=== PATIENT | female | born 1990 | race Two or more races ===

== ENCOUNTER 2025-06-01 16:13 | Inpatient (IN) | payer MEDICAID, OTHER, SELFPAY ==
--- OUTSIDE RECORDS SUMMARY | 2025-05-10 10:20 | XMS_ITS | Continuity of Care Document ---
Author Organization [facility] Address [address] [place] [address] Phone Care Team Providers Care Day Care Teacher Name Role Phone Nelson Trent Unavailable Unavailable Medications Medication Instructions Dosage Effective Dates (start - stop) Status Comments escitalopram 10 mg tablet take 1 and a half tablets by oral route - Active Vitamin D2 1,250 mcg (50,000 unit) capsule take 1 capsule by oral route every week for 3 months and then take 1 capsule every month - Active escitalopram 10 mg tablet take 1 tablet by oral route every day 10 MG - No Longer Active Procedures Procedure Date OFFICE/OUTPATIENT VISIT, EST OFFICE/OUTPATIENT VISIT, NEW Results Test Name Date and Time Measure Units Reference Range Abnormal Flag Status Comments Panel Description: CBC w/o Diff Final White Blood Cells 15:22:00 3.9 10*3/uL 4.0-11.0 L Final Performed by:[facility] ([id number])[address] [place] [address] Red Blood Cells 15:22:00 4.11 10*6/uL 4.0-5.4 N Final Performed by:[facility] ([id number])14 [place] [address] Hemoglobin 15:22:00 11.8 g/dL 12.0-16.0 L Final Performed by:[facility] ([id number])[address] [place] [address] Hematocrit 15:22:00 35.4 % 36.0-48.0 L Final Performed by:[facility] ([id number])[address] [place] [address] Mean Cell Volume 15:22:00 86.1 fL 80.0-96.0 N Final Performed by:[facility] ([id number])[address] [place] [address] Mean Cell HGB 15:22:00 28.7 pg 27.0-31.0 N Final Performed by:[facility] ([id number])[address] [place] [address]956 Mean Cell HGB Conc 15:22:00 33.3 g/dL 32.0-36.0 N Final Performed by:[facility] ([id number])[address] [place] [address] RDW-CV 15:22:00 13.1 % 12.8-18.4 N Final Performed by:[facility] ([id number])[address] [place] [address] PLT Count 15:22:00 209 10*3/uL 140-400 N Final Performed by:[facility] ([id number])[address] [place] [address] 64605 MPV 15:22:00 11.5 fL 8.0-12.0 N Final Performed by:[facility] ([id number])[address] [place] [address] 10711 NRBC Pct Auto 15:22:00 0.0 % 0.0-0.2 N Final Performed by:[facility] ([id number])[address] [place] [address] NRBC Abs Auto 15:22:00 0.00 10*3/uL 0.000-0.012 N Final Performed by: [facility] ([id number])[address] [place] [address] Panel Description: Basic Metabolic Panel Final Sodium 15:22:00 140 mmol/L 136-145 N Final Performed by:[facility] ([id number])[address] [place] [address] Potassium 15:22:00 4.2 mmol/L 3.5-5.1 N Final Performed by:[facility] ([id number])[address] [place] [address] Chloride 15:22:00 104 mmol/L 98-107 N Final Performed by:[facility] ([id number])[address] [place] [address] Carbon Dioxide 15:22:00 28 mmol/L 20-31 N Final Performed by:[facility] ([id number])[address] [place] [address] 75369 Anion Gap 15:22:00 8 mmol/L 5-15 N Final Performed by:[facility] ([id number])[address] [place] [address] Glucose 15:22:00 92 mg/dL 74-106 N Final Performed by:[facility] ([id number])[address] [place] [address] 33299 Blood Urea Nitrogen 15:22:00 12 mg/dL 9-23 N Final Performed by:[facility] ([id number])[address] [place] [address] Serum Creatinine 15:22:00 0.82 mg/dL 0.55-1.02 N Final Performed by:[facility] ([id number])[address] [place] [address] Estimated GFR 15:22:00 97 > 60 Final Units - mL/min/1.73 msqCKD-EPI Creatinine Equation (2020) used as recommended byThe National Kidney Foundation. Start date (11/12/22).Perfor med by:[facility] ([id number])[address] [place] [address] Calcium 15:22:00 9.5 mg/dL 8.3-10.6 N Final Please Note: N ew method for Calcium testing live 08/16/2024. New reference range live 08/16/2024.Perfor med by:[facility] ([id number])14 [place] [address] Panel Description: TSH [place] Final TSH [place] 025 15:22:00 2.488 uIU/mL 0.358-3.740 N Final Performed by: [facility] ([id number])14 [place] [address] Panel Description: Vitamin D 25 Hydroxy Final Vitamin D 25 Hydroxy 025 15:22:00 19.0 ng/mL 30-100 L Final Interpretation of Vitamin D total:<20 ng/mL Zubcaddvf52-28 ng/mL Insufficient>30 ng/mL Sufficient>100 ng/mL ToxicPerformed by:[facility] ([id number])14 [place] [address] Advance Directives Directive Yes / No Effective Date File Name No Information Encounters Encounter Description Practice Location Reason(s) For Visit Diagnoses Date Provider Providers Copied on Encounter OFFICE/OUTPA TIENT VISIT, [facility], [address], [place], [place], [id number], tel:[phone] anxiety (chief complaint) AnxietyOverweig ht (E66.3)Body mass index (BMI) 26.0-26.9, adultPostural dizziness 5 Maria De Jesus Damon. [address] [facility], [place], [address], [place]. tel:[phone] OFFICE/OUTPA TIENT VISIT, [facility], [address], [place], [place], [id number], tel:[phone] [facility] ER f/u (chief complaint) Other chest painAnxiety 5 Maria De Jesus Damon. [address] [place], [address], [place]. tel:[phone] Family History Family Member Type Diagnosis Age At Onset No Information Payers Payer name Insurance type Covered green party ID Authorlynna tikrystal(s) Mesh [place] [facility] [id number] [employer] [facility] [id number] Social History Type Description Quantity Date Captured Comments Alcohol Use Details Unknown Caffeine Use Details Unknown Tobacco Use Status No Information Smoking Status No Information Sex Female Sexual Orientation Straight or heterosexual Vital Signs Date / Time: Height Weight BMI Pulse Rate Blood Pressure Temperature Respiratory Rate Body Surface Area Head Circumference Head Circ. Percentile Wt./Lonny. Percentile BMI percentile Pulse Ox Inhaled Ox 2:23 PM 58.31 in 58.423 kg (128.80 lbs) 26.6 3 kg/m eter (2) 61 /min 88/58 mm[Hg] 97.90 F 1.55 meter(2) Chief Complaint And Reason For Visit From encounter dated '05/10/2025 14:20'. anxiety (chief complaint). Description: The patient presents with anxious/fearful thoughts and difficulty concentrating but denies compulsive thoughts, decreased need for sleep, depressed mood, difficulty falling asleep, difficulty staying asleep or thoughts of or suicide. The patient's risk factors include financial worries. Additional information: has had some good improvement with escitalopram and would like to continue. Has 2 daughters and 1 son. Has stress with fiances, pt works in house cleaning. Reason For Referral Reason For Referral No Information Plan Of Treatment Date Type Action Status Goal BPRS. Due on due Goal DAST. Due on due Goal PHQ-9. Due on du e Goal IAP. Due on due Goal Td vaccine. Due on due Goal Document SOGI Information. D ue on due Goal Unhealthy drug use screening . Due on due Goal Tdap. Due on due Goal HPV. Due on due Goal Influenza vaccine. Due on due Goal APE. Due on due Goal Pap/HPV testing. Due on due Goal Diabetes Screening. Due on A due Goal APE. Due on due Goal HPV. Due on due Goal Td vaccine. Due on due Goal Diabetes Screening. Due on J due Goal Document SOGI Information. D ue on due Goal Unhealthy drug use screening . Due on due Goal Pap/HPV testing. Due on due Goal Tdap. Due on due Goal Influenza vaccine. Due on due Referral Ordered: Referrals: [facility]. Evaluate and treat Appointment date/timeframe: Urgent ordered Appointment Kasey Frederick History Of Present Illness Encounter Date Complaint History Of Prese nt Illness anxiety The patient pres ents with anxious/fearful thoughts and difficulty concentrating but denies compulsive thoughts, decreased need for sleep, depressed mood, difficulty falling asleep, difficulty staying asleep or thoughts of or suicide. The patient's risk factors include financial worries. Additional information: has had some good improvement with escitalopram and would like to continue. Has 2 daughters and 1 son. Has stress with fiances, pt works in house cleaning. ER f/u - Went to [facility] n 03/12/25 for chest pain and SOB for past 1 week that come and go. Reported to ED due to worsening CP with tingling in both arms. - Labs: no leukocytosis H&H stable, D-Dimer 350, creatinine 0.72, troponin neg x2, hcg neg- CXR no acute process- EKG showing NSR 84 bpm. - Pt was given Toradol and AtivanPMH: noneMeds: noneallergy: noneSurgery : appendectomy (2023) and tubal ligation in 2019Fhx: denies any cancer, heart disease, HTN, DM. Denies any fhx of BH issues. smoking, drinking, drug use: none. Today: doing well, having increased anxiety and stressors at home due to stress with due to not working at this time. Has been in [place] ~3-4 months has been in [facility] for over a year. Having a lot of stress due to finances and getting upset during exam. Used to work in [employer]. Immigrated from [facility]. Lives with 3 sons at home in house that they rent a room. Still gets intermittent chest pain that comes and goes on its own. Functional Status Date Functional Assessmen t No Information Instructions Date Instruction Additional Infor dionne Dietary and exercise management, guidance, and counseling Related to Overweight (E66.3) Dietary and exercise management, guidance, and counseling Related to Body mass index (BMI) 26.0-26.9, adult Assessments Type Assessment Date assessment Anxiety assessment Overweight (E66.3) assessment Body mass index (BMI) 26.0-26.9, adult assessment Postural dizziness Patient Care Teams Name Effective Dates (start - stop) Status Members No Information
[2025-06-01 18:24] VITALS: BP 106/65; PULSE 66; RESP 14; TEMP 37.1; O2SAT 96
--- NOTE | 2025-06-01 18:49 | PC.ADMIT ---
Kasey is a 34 y/o female that was admitted to [facility] at time from [facility] in [place] on a CV for treatment of diagnosis. Pt is [place], from [place]. Pt lives at home with her family. ? Unspecified anxiety d/o. Per crisis evaluation pt presented to the ED after she took about 20 tabs of 10 mg Lexapro.? Pt called her brother in law after she began to vomit, H/A and abdominal pain. Pt is unsure if it was a suicide attempt. She stated ?i was just trying to relax, I wanted to sleep. I don?t know why I took that many pills. I have no stress, no issues at home. I was doing my normal routine of going to work and coming home nothing happened?.? Pt had limited insight into the severity of the situation leading up to her admission.? Pt denied SI or HI at this time. Pt denied AVH.? Precipitant of admission include Behavior/ Issue leading up to ED. A&O x4. Pt was cooperative with the admission process. Skin check unremarkable.? Mood is relaxed, affect is congruent. Full range in affect.? Thought Process linear and organized.? Pt had good focus, reported no disturbances with sleep or appetite.? Tox Screen? was negative. denied tobacco, substance or etoh use.? Medical Issues hx of appendectomy.? 1st IPLOC.? Pt has 3 children, a 51A was filed.? Pt was placed on 15 min checks for safety.
[2025-06-01 18:54] VITALS: BMI 27.6
[2025-06-01 19:36] VITALS: BP 118/74
[2025-06-01 20:00] VITALS: BP 115/70; PULSE 65; RESP 15; TEMP 36.9; O2SAT 100
[2025-06-02 07:00] VITALS: BMI 27.7
[2025-06-02 07:37] VITALS: BP 104/61; PULSE 66; RESP 18; TEMP 36.8; O2SAT 99
[2025-06-02 08:05] LABS: Hemoglobin A1C 95.9496 umol/L; Total Hemoglobin (HGBA1C) 3097.8673 umol/L
--- NOTE | 2025-06-02 08:11 | HO.PM.IMCN ---
History of Present Illness Data of Consult Service Date: 06/02/25 Requesting physician: Radha Tena Primary Care Provider: Nelson BRANDT Reason for consult: Admission H&P This is a 34-year-old French-speaking female who was admitted from [place] due to overdose with Lexapro. The hospitalist service was asked to see her in consultation for routine medical consult. History was obtained with the assistance of a cabin cleaning supervisor. Patient denies the history of any chronic medical conditions, she denies taking any medications on daily basis with the exception of her Lexapro for depression. She does report a remote history of what she calls thrombosis back in [facility] but she has never been on anticoagulation. She denies any specific medical complaints at this time PMFSH Social History Household Members: Family Housing: Apartment Do you presently have visiting nurse or other home services: No Patient Tobacco Use Status: Never used Tobacco Smoked in Last 30 Days: No e-Cigarette/Vaping Use: Never Used Patient Interested in Nicotine Replacement: No Currently Displaying Signs/Symptoms of Drug Intoxication Withdrawal: No Have you been hit, kicked, punched, or otherwise hurt by someone within the past year? If so, by whom?: No Do you feel safe in your current relationship?: Yes Is there a partner from a previous relationship who is making you feel unsafe now?: No Are you made to feel afraid or neglected: No Advance Directives: No Advance Directives Information Provided: Yes Do you have thoughts of harming others: None Do you have a plan to hurt others: No Plan Recently lost weight without trying: No How much weight loss: Not applicable Eating poorly because of decreased appetite: No Nutrition screen score: 0 Nutrition Risks: No Nutritional Risk Patient : No : No Poor oral hygiene: No Meds Allergies Allergy/AdvReac Type Severity Reaction Status Date / Time No Known Allergies Allergy Verified 06/01/25 16:23 Active Medications: Current Medications Acetaminophen (Acetaminophen 325 Mg Tablet) 650 mg PO Q6H PRN PRN Reason: Headache/Pain, Scale 1-10 Last Admin: 06/01/25 19:27 Dose: 650 mg Al Hydroxide/Mg Hydroxide (Magnesium Hydrox/Alum Hydrox 30 Ml Oral.Susp) 30 ml PO Q6H PRN PRN Reason: Heartburn/Nausea Ergocalciferol (Ergocalciferol (Vitamin D2) 1,250 Mcg Capsule) 1,250 mcg PO Q7D [facility] Escitalopram Oxalate (Escitalopram Oxalate 5 Mg Tablet) 15 mg PO DAILY [facility] Last Admin: 06/02/25 08:04 Dose: Not Given Hydroxyzine HCl (Hydroxyzine Hcl 25 Mg Tablet) 25 mg PO Q6H PRN PRN Reason: mild anxiety Magnesium Hydroxide (Milk Of Magnesia 30 Ml Oral.Susp) 30 ml PO DAILY PRN PRN Reason: Constipation Nicotine Polacrilex (Nicotine Polacrilex 2 Mg Gum) 4 mg BUCCAL Q2H PRN PRN Reason: Nicotine Cravings Trazodone HCl (Trazodone Hcl 50 Mg Tablet) 50 mg PO BEDTIME MRX1 PRN PRN Reason: Insomnia Home Medications ?Medication ?Instructions ?Recorded ?Confirmed ?Last Taken ?Type ergocalciferol (vitamin D2) 1,250 1,250 mcg PO QWEEK 06/01/25 06/01/25 Unknown History mcg (50,000 unit) capsule escitalopram oxalate 10 mg tablet 15 mg PO DAILY 06/01/25 06/01/25 Unknown History Physical Exam Vital Signs and Narrative: Vital Signs: Last Vital Signs Temp 98.2 F 06/02/25 07:37 Pulse 66 06/02/25 07:37 Resp 18 06/02/25 07:37 BP 104/61 06/02/25 07:37 Pulse Ox 99 06/02/25 07:37 O2 Del Method Room Air 06/02/25 07:37 BMI result Body Mass Index 27.6 Const: Nutritional Appearance: well nourished Orientation/consciousness: patient oriented x3 Resp: Effort & Inspection: normal respiratory effort and no respiratory distress Auscultation: clear to auscultation bilaterally Cardio: Rate: regular rate Rhythm: regular rhythm Neuro: General: patient oriented x3 Cranial nerves: Yes CN's II-XII intact bilaterally Results Labs 06/02/25 07:35 Labs: Laboratory Results - last 24 hr 06/02/25 07:35 Estimat Average Glucose 97 Hemoglobin A1c % 5.0 Assessment and Plan (1) General medical exam: Status: Acute Plan This is a 34-year-old French-speaking female admitted for possible overdose attempt Patient has no chronic medical conditions outside of her known depression for which she takes Lexapro. Lab work is pending at the time of this consultation. There are no active medical problems at this time. Thank you for allowing us to participate in the care of this patient. If any acute medical issues arise feel free to reach out.
[2025-06-02 08:15] LABS: Alanine Aminotransferase 18 U/L (0-31); Albumin Level 4.4 g/dL (3.5-5.0); Alkaline Phosphatase 56 U/L (39-117); Anion Gap 11 (12-20); Aspartate Amino Transferase 23 U/L (5-31); Blood Urea Nitrogen 13 mg/dL (9-16); Calcium 8.9 mg/dL (8.4-10.2); Carbon Dioxide 25 mmol/L (22-29); Chloride 105 mmol/L (96-108); Cholesterol 152 mg/dL (<200); Creatinine Clr Calc Pharmacy 85.9; Estimated Glomerular Filt Rate > 60; HDL Cholesterol 53 mg/dL (>40); Potassium 3.8 mmol/L (3.3-5.1); Sodium 137 mmol/L (135-145); Total Protein 7.2 g/dL (6.5-8.0); Triglycerides 72 mg/dL (<150)
--- NOTE | 2025-06-02 09:10 | HO.PSYADMNOT ---
[facility] Date of Service: 06/02/25 Chief Complaint: anxiety, unspecified Sources of Information: patient interviewed, chart reviewed and crisis/core team assessment reviewed HPI Subjective Notes: [place] Warning and Conditional Voluntary Narrative: Patient is a 34-year-old female with hx of PTSD, who presented to ER after taking 20 pills of Lexapro secondary to wanting to sleep and increased anxiety. Per crisis report, patient presented to ER after disclosing to her [id number]-[id number] that she took 20 pills of Lexapro. She has been inconsistent with her reports of the intention behind taking this overdose. Patient reports she got home from work and all of a sudden got desperate and took some pills . She reports she took the pills because she just wanted to sleep . When asked if she was trying to hurt herself, patient stated, no never . In one of the clinician notes, it reports patient stated, she was not sure if this had been a suicide attempt . Patient reports she took the medications because she was feeling very anxious . Patient denied she is currently suicidal and denies ever being suicidal throughout her life. She denies HI/VH/AH. Denies any history of psychiatric treatment. 51A has been filed while she was in the ER. During admission assessment, patient presents alert and oriented x3. Calm and cooperative. group manager present. Patient reports feeling fine ; patient stated taking the 20 pills of Lexapro was not a suicide attempt. Patient stated, all I wanted to do was sleep. That day I was very tired from work. I don't know why I took 20 of them. I was not thinking. I got scared and I called my boyfriend and told him that I took the pills . Patient adamantly denies suicidal ideation. Patient stated, I have never had thoughts of wanting to harm myself . Patient reports history of being prescribed Lexapro by her PCP after telling him that she felt depressed because she did not have a job. Patient denies any substance use. Utox negative. Denies history of inpatient psychiatric hospitalizations. Denies history of SA/SIB. Patient reports she is not interested in taking psychiatric medications at this time because she feels good . She would like referrals to an outpatient therapist; psychosocial rehabilitation counselor aware. Past Psychiatric History: denies hx of inpatient psychiatric hospitalizations. denies hx of SA/SIB. denies outpatient psychiatric providers. Medical Evaluation Reviewed: Yes PMFSH Family History: Denies Social History: Lives with dxjvqcu-in-eoq, his and their 3 children. Single. Pt has 3 kids(15, 9, 6 y/o) who also live in the home. Works part-time in [employer]. Substance History: Denies Trauma History: Yes Diagnostics Vital Signs (24Hr): Vital Signs - 24 hr 06/01/25 18:24 06/01/25 19:36 06/01/25 20:00 Temperature 98.8 F 98.4 F Pulse Rate 66 65 Respiratory Rate 14 15 Blood Pressure 106/65 118/74 115/70 Pulse Oximetry 96 100 Oxygen Delivery Method Room Air Room Air 06/02/25 07:37 Temperature 98.2 F Pulse Rate 66 Respiratory Rate 18 Blood Pressure 104/61 Pulse Oximetry 99 Oxygen Delivery Method Room Air BMI result Body Mass Index 27.6 Labs 06/02/25 07:35 Labs: Laboratory Results - last 48 hr 06/02/25 07:35 Sodium 137 Potassium 3.8 Chloride 105 Carbon Dioxide 25 Anion Gap 11 L BUN 13 Creatinine 0.68 Estim Creat Clear Calc 85.9 Estimated GFR > 60 Random Glucose 94 Estimat Average Glucose 97 Hemoglobin A1c % 5.0 Calcium 8.9 Total Bilirubin 0.6 AST 23 ALT 18 Alkaline Phosphatase 56 Total Protein 7.2 Albumin 4.4 Triglycerides 72 Cholesterol 152 LDL Cholesterol, Calc 85 HDL Cholesterol 53 Meds/Allergies Meds Home Medications ?Medication ?Instructions ?Recorded ?Confirmed ?Type ergocalciferol (vitamin D2) 1,250 1,250 mcg PO QWEEK 06/01/25 06/01/25 History mcg (50,000 unit) capsule escitalopram oxalate 10 mg tablet 15 mg PO DAILY 06/01/25 06/01/25 History Allergies Allergies Allergy/AdvReac Type Severity Reaction Status Date / Time No Known Allergies Allergy Verified 06/01/25 16:23 Mental Status Exam Mental Status Exam Patient Appearance: Appropriate Patient Orientation: Person, Place, Time and Situation Level of Consciousness: Awake and Alert Patient Behavior: Appropriate, Guarded, Cooperative and Good Eye Contact Mood Description: Calm Affect Description: Calm Ability to Follow Directions: Good Speech Pattern: Clear Memory Description: Intact Hallucinations: None Delusions: Not Present Thought Process: Intact Thought Content: positive for Intact Assessment & Plan Assessment & Plan (1) MDD (major depressive disorder): Status: Acute Code(s): F32.9 - Major depressive disorder, single episode, unspecified (2) PTSD (post-traumatic stress disorder): Status: Acute Code(s): F43.10 - Post-traumatic stress disorder, unspecified Plan Patient is a 34-year-old female with hx of PTSD, who presented to ER after taking 20 pills of Lexapro secondary to wanting to sleep and increased anxiety. Plan: CV 15 minute safety checks Continue home medications obtain collateral referral to outpatient psychiatric providers encourage groups discharge planning Patient educated on: diagnosis and medication risk/benefits Reason for continued inpatient stay Substantial Risk for: med/psych decompensation Statement Statement: I have reviewed the history and physical and performed a pertinent examination on my patient. No changes have occurred unless specified. If the History and Physical was not performed prior to admission, the Hospitalist's service will be consulted for completing the admission physical. Time Spent With Patient Time: Total time managing care of this patient today _60___ minutes.
[2025-06-02 20:00] VITALS: BP 105/60; PULSE 63; RESP 16; TEMP 36.4; O2SAT 100
[2025-06-03 07:25] VITALS: BP 102/55; PULSE 73; RESP 16; TEMP 36.3; O2SAT 99
--- NOTE | 2025-06-03 08:48 | P.PNPSI_ITS ---
Subjective Subjective Reason For Visit: anxiety, unspecified Diagnostics Vital Signs (24Hr): Vital Signs - 24 hr 06/02/25 20:00 06/03/25 07:25 Temperature 97.6 F 97.4 F Pulse Rate 63 73 Respiratory Rate 16 16 Blood Pressure 105/60 102/55 L Pulse Oximetry 100 99 Oxygen Delivery Method Room Air Room Air BMI result Body Mass Index 27.7 Labs 06/02/25 07:35 Labs: Laboratory Results - last 48 hr 06/02/25 07:35 Sodium 137 Potassium 3.8 Chloride 105 Carbon Dioxide 25 Anion Gap 11 L BUN 13 Creatinine 0.68 Estim Creat Clear Calc 85.9 Estimated GFR > 60 Random Glucose 94 Estimat Average Glucose 97 Hemoglobin A1c % 5.0 Calcium 8.9 Total Bilirubin 0.6 AST 23 ALT 18 Alkaline Phosphatase 56 Total Protein 7.2 Albumin 4.4 Triglycerides 72 Cholesterol 152 LDL Cholesterol, Calc 85 HDL Cholesterol 53 Medications Medications Current Medications Acetaminophen (Acetaminophen 325 Mg Tablet) 650 mg PO Q6H PRN PRN Reason: Headache/Pain, Scale 1-10 Last Admin: 06/03/25 08:35 Dose: 650 mg Al Hydroxide/Mg Hydroxide (Magnesium Hydrox/Alum Hydrox 30 Ml Oral.Susp) 30 ml PO Q6H PRN PRN Reason: Heartburn/Nausea Ergocalciferol (Ergocalciferol (Vitamin D2) 1,250 Mcg Capsule) 1,250 mcg PO Q7D [facility] Escitalopram Oxalate (Escitalopram Oxalate 5 Mg Tablet) 15 mg PO DAILY [facility] Last Admin: 06/03/25 08:36 Dose: Not Given Hydroxyzine HCl (Hydroxyzine Hcl 25 Mg Tablet) 25 mg PO Q6H PRN PRN Reason: mild anxiety Magnesium Hydroxide (Milk Of Magnesia 30 Ml Oral.Susp) 30 ml PO DAILY PRN PRN Reason: Constipation Nicotine Polacrilex (Nicotine Polacrilex 2 Mg Gum) 4 mg BUCCAL Q2H PRN PRN Reason: Nicotine Cravings Trazodone HCl (Trazodone Hcl 50 Mg Tablet) 50 mg PO BEDTIME MRX1 PRN PRN Reason: Insomnia Allergies Allergies Allergy/AdvReac Type Severity Reaction Status Date / Time No Known Allergies Allergy Verified 06/01/25 16:23 Assessment & Plan Assessment & Plan (1) MDD (major depressive disorder): Status: Acute Code(s): F32.9 - Major depressive disorder, single episode, unspecified (2) PTSD (post-traumatic stress disorder): Status: Acute Code(s): F43.10 - Post-traumatic stress disorder, unspecified Plan Patient is a 34-year-old female with hx of PTSD, who presented to ER after taking 20 pills of Lexapro secondary to wanting to sleep and increased anxiety. Plan: CV 15 minute safety checks Continue home medications obtain collateral referral to outpatient psychiatric providers encourage groups discharge planning Time Spent With Patient Time: Total time managing care of this patient today ____ minutes.
--- NOTE | 2025-06-03 11:47 | PM.PSYDC ---
DS: Providers Provider Date of Service: 06/03/25 Date of admission: 06/01/25 16:13 Date of discharge: 06/03/25 Primary care physician: Nelson Pretty Admitting clinician: Radha Tena Attending physician on admission: Randy Acevedo Consults: 06/01/25 16:28 Consult to Hospitalist Routine Comment: Consulting Provider: [facility] Reason For Exam: new admit, H&P Attending physician on discharge: Randy Acevedo Discharging clinician: Radha Tena DS: Diagnosis Discharge Diagnosis (1) MDD (major depressive disorder): Status: Acute (2) PTSD (post-traumatic stress disorder): Status: Acute DS: Medications Discharge Medications Home Medications: Home Medications ?Medication ?Instructions ?Recorded ?Confirmed ergocalciferol (vitamin D2) 1,250 1,250 mcg PO QWEEK 06/01/25 06/01/25 mcg (50,000 unit) capsule escitalopram oxalate 10 mg tablet 15 mg PO DAILY 06/01/25 06/01/25 Mental Status Exam Mental Status Exam Narrative: Pt is alert and oriented; behavior is cooperative and calm; dressed in casual attire; mood is described as good ; eye contact appropriate; Speech is normal rate, volume and not pressured; thought process is organized; Thought content is on discharge; denies SI/HI// Data Data Completed and Pending Completed studies during hospitalization [Text1]: 06/02/25 07:35 Sodium 137 Potassium 3.8 Chloride 105 Carbon Dioxide 25 Anion Gap 11 L BUN 13 Creatinine 0.68 Estim Creat Clear Calc 85.9 Estimated GFR > 60 Random Glucose 94 Estimat Average Glucose 97 Hemoglobin A1c % 5.0 Calcium 8.9 Total Bilirubin 0.6 AST 23 ALT 18 Alkaline Phosphatase 56 Total Protein 7.2 Albumin 4.4 Triglycerides 72 Cholesterol 152 LDL Cholesterol, Calc 85 HDL Cholesterol 53 DS: Summary Hospital Course Hospital Course: Patient is a 34-year-old female with hx of PTSD, who presented to ER after taking 20 pills of Lexapro secondary to wanting to sleep and increased anxiety. Per crisis report, patient presented to ER after disclosing to her [id number] that she took 20 pills of Lexapro. She has been inconsistent with her reports of the intention behind taking this overdose. Patient reports she got home from work and all of a sudden got desperate and took some pills . She reports she took the pills because she just wanted to sleep . When asked if she was trying to hurt herself, patient stated, no never . In one of the clinician notes, it reports patient stated, she was not sure if this had been a suicide attempt . Patient reports she took the medications because she was feeling very anxious . Patient denied she is currently suicidal and denies ever being suicidal throughout her life. She denies HI/VH/AH. Denies any history of psychiatric treatment. 51A has been filed while she was in the ER. During admission assessment, patient presents alert and oriented x3. Calm and cooperative. foreign language interpreter present. Patient reports feeling fine ; patient stated taking the 20 pills of Lexapro was not a suicide attempt. Patient stated, all I wanted to do was sleep. That day I was very tired from work. I don't know why I took 20 of them. I was not thinking. I got scared and I called my boyfriend and told him that I took the pills . Patient adamantly denies suicidal ideation. Patient stated, I have never had thoughts of wanting to harm myself . Patient reports history of being prescribed Lexapro by her PCP after telling him that she felt depressed because she did not have a job. Patient denies any substance use. Utox negative. Denies history of inpatient psychiatric hospitalizations. Denies history of SA/SIB. Patient reports she is not interested in taking psychiatric medications at this time because she feels good . She would like referrals to an outpatient therapist; social science research assistant aware. Plan: CV 15 minute safety checks Continue home medications obtain collateral referral to outpatient psychiatric providers encourage groups discharge planning foreign language interpreter present. Patient continues to report feeling good ; she denies any anxiety or depression. Patient declined Lexapro and states she doesn't need medication because I feel good . Patient stated, I thought the Lexapro was for sleep. I recognize it was a lot of medication but I never wanted to hurt myself. They just always made me sleepy so I thought they were for sleep . Patient continues to deny SI/HI/VH/AH. Patient discharged home with brother in law. Referral were given by social science research assistant for outpatient psychiatric providers. Patient reports she plans on following up with outpatient providers. Status at Discharge Cognitive/behavioral status at discharge: Patient has insight and demonstrates good judgment in terms of wanting to pursue treatment. Patient has a safety plan that includes presenting to the closest ER or calling 911 if feeling unsafe. Functional status at discharge: independent ambulation Overall status at discharge: patient is back to baseline Time Spent with Patient Time attestation: Total time managing care of this patient today _20___ minutes. Time spent: Less than 30 minutes Discharge Plan Discharge Anticipated Discharge Date/Time: 06/03/25 11:48 Patient Disposition: Home, Self-Care Discharge Diagnosis: MDD, PTSD Referrals: Nelson Pretty [Other] - 07/05/25 3:00 pm Referral Note: El examen f?sico est? programado para el 05/07/25 a las 3 p. m. en la direcci?n mencionada anteriormente en [place]. Derivaci?n de Psic?logo: [facility] [Other] - 1 Week Referral Note: Le armas puesto en hill lista de espera para un psic?logo; le llamar?n hill vez que haya hill vacante para programar hill gladys. Equipo de Crisis: [facility] [Other] - 1 Week Referral Note: Llame al n?kenisha indicado anteriormente, que est? disponible las 24 horas, los 7 d?as de la semana, si le preocupa sufrir da?os a usted mismo o a otras personas. Discharge Medications: Continued ergocalciferol (vitamin D2) 1,250 mcg (50,000 unit) capsule 1,250 mcg PO QWEEK escitalopram oxalate 10 mg tablet 15 mg PO DAILY Discharge Orders: Discharge Order (Routine); Ordered 06/03/25 Ordered By: Radha Tena Diet: Regular diet Activity on Discharge: As tolerated Stand Alone Forms: Patient Portal Discharge page, Community Support Print Language: Icelandic Care Plan Goals: Maintain mood and safe behaviors Take medications as prescribed Practice coping skills Continue with outpatient providers and reach out to them as needed Health Concerns: Mood stability and behaviors Plan of Treatment: Follow up with your PCP, psychiatric provider and other outpatient providers regarding above concerns Take medications as prescribed Assessment: Patient has insight and demonstrates good judgment in terms of wanting to pursue treatment. Patient has a safety plan that includes presenting to the closest ER or calling 911 if feeling unsafe. Discharge Date/Time: 06/03/25 14:04
== END 2025-06-03 14:04 | disposition home or self-care (01) | DRG 754 ==
PROVIDERS: Admitting Provider Psychiatry & Neurology Psychiatry; Responsible Provider Registered Nurse; Visit Provider Psychiatry & Neurology Psychiatry
DX: F32.9 Major depressive disorder, single episode, unspecified (principal); F43.10 Post-traumatic stress disorder, unspecified; Z91.51 Personal history of suicidal behavior; Z79.899 Other long term (current) drug therapy
CPT/HCPCS: 36415; 80053; 80061; 83036

== ENCOUNTER → 2025-06-01 16:13 | Outpatient (BNV) | payer MEDICAID, SELFPAY | PROVIDERS: Admitting Provider Psychiatry & Neurology Psychiatry; Visit Provider Physician Assistant Medical | DX: R41.82 Altered mental status, unspecified (principal) | CPT/HCPCS: 99221 ==

== ENCOUNTER → 2025-06-01 16:13 | Outpatient (BNV) | payer MEDICAID, SELFPAY | PROVIDERS: Admitting Provider Psychiatry & Neurology Psychiatry; Responsible Provider Registered Nurse; Visit Provider Registered Nurse | DX: F32.1 Major depressive disorder, single episode, moderate (principal); F43.11 Post-traumatic stress disorder, acute | CPT/HCPCS: 90792; 99238 ==